=== PATIENT | female | born 1955 ===

== ENCOUNTER 2016-06-10 09:49 | Inpatient (IN) | payer MEDICAID ==
--- NOTE | 2016-06-10 10:13 | ED PDOC ---
Arrival/HPI - General Chief Complaint: Weakness/Neurological Deficit Time Seen by Provider: 06/10/16 10:02 Historian: Patient - History of Present Illness Narrative History of Present Illness (Text): 06/10/16 09:57 Breanna López is a 60 year old female whose past medical history includes Stroke and Hypertension, who presents to the Emergency department after waking up this morning with left eye blindness. Described as complete black vision from left eye, "maybe a few light green lights but all black, no light". Patient was last known well this morning at 2:30AM when she went to bed. Patient states her vision was fine in both eyes all throughout yesterday and last night. Patient previously has seen an Staffing Mgr Dr. Brown who sent her to a Retinal Specialist at [facility] for the left eye, where she was told she had hemorrhages in the back of the left eye. Patient has also been experiencing left sided numbness since yesterday. She does get intermittent left sided numbness she states. Patient otherwise denies any fever, chills, chest pain, shortness of breath, nausea, vomiting, diarrhea, urinary symptoms, back pain, neck pain, headache, eye pain, dizziness, or any other complaints. PMD: Ebonie Camp MD Time/Duration: 24 hours Symptom Onset: Sudden Activities at Onset: Rest, Light Context: Home Past Medical History - Provider Review Nursing Documentation Reviewed: Yes - Infectious Disease Hx of Infectious Diseases: None - Reproductive Menopause: Yes - Cardiac Hx Hypertension: Yes - Endocrine/Metabolic Hx Hypothyroidism: Yes - Hematological/Oncological Hx Blood Transfusions: Yes Hx Blood Transfusion Reaction: No - Musculoskeletal/Rheumatological Hx Falls: No - Psychiatric Hx Anxiety: Yes Hx Depression: Yes Hx Substance Use: No - Surgical History Hx Gastric Bypass Surgery: Yes (20yrs ago) - Anesthesia Hx Anesthesia: Yes Hx Anesthesia Reactions: No Hx Malignant Hyperthermia: No Family/Social History - Physician Review Nursing Documentation Reviewed: Yes Family/Social History: No Known Family HX Smoking Status: Never Smoked Hx Alcohol Use: Yes Hx Substance Use: No Allergies/Home Meds Allergies/Adverse Reactions: Allergies aspirin Allergy (Verified 06/10/16 11:51) RASH codeine Allergy (Verified 06/10/16 11:51) RASH Review of Systems - Physician Review All systems were reviewed & negative as marked: Yes - Review of Systems Constitutional: Normal. absent: Fevers Eyes: Vision Changes (Complete Blindness in Left Eye). absent: Photophobia, Eye Pain ENT: Normal. absent: Hearing Changes Respiratory: Normal. absent: SOB, Cough Cardiovascular: Normal. absent: Chest Pain Gastrointestinal: Normal. absent: Abdominal Pain, Diarrhea, Nausea, Vomiting Genitourinary Female: Normal. absent: Dysuria, Frequency, Hematuria, Urine Output Changes Musculoskeletal: Normal. absent: Back Pain, Neck Pain Skin: Normal Neurological: Other (Left Sided Numbness). absent: Headache, Dizziness Endocrine: Normal Hemo/Lymphatic: Normal Psychiatric: Normal Physical Exam Vital Signs Reviewed: Yes Vital Signs Temp Pulse Resp BP Pulse Ox 06/10/16 11:02 90 18 124/79 99 06/10/16 09:56 95 H 19 137/88 98 06/10/16 09:50 97.5 F L 95 H 19 137/88 98 Blood Pressure: Normal Pulse: Regular Respiratory Rate: Normal Appearance: Positive for: Well-Appearing, Non-Toxic, Comfortable Pain Distress: None Mental Status: Positive for: Alert and Oriented X 3 - Systems Exam Head: Present: Atraumatic, Normocephalic Pupils: Present: PERRL Extroacular Muscles: Present: EOMI Conjunctiva: Present: Normal Mouth: Present: Moist Mucous Membranes Neck: Present: Normal Range of Motion Respiratory/Chest: Present: Clear to Auscultation, Good Air Exchange. No: Respiratory Distress, Accessory Muscle Use Cardiovascular: Present: Regular Rate and Rhythm, Normal S1, S2. No: Murmurs Abdomen: Present: Normal Bowel Sounds. No: Tenderness, Distention, Peritoneal Signs Back: Present: Normal Inspection Upper Extremity: Present: Normal Inspection. No: Cyanosis, Edema Lower Extremity: Present: Normal Inspection. No: Edema Neurological: Present: GCS=15, CN II-XII Intact, Speech Normal, Motor Func Grossly Intact, Normal Cerebellar Funct, Norm Deep Tendon Reflexes, Gait Normal , Memory Normal, Normal 2Pt Descrimination, Other (Left Upper Facial Numbness). No: Normal Sensory Function (left arm numbness) Skin: Present: Warm, Dry, Normal Color. No: Rashes Psychiatric: Present: Alert, Oriented x 3, Normal Insight, Normal Concentration Medical Decision Making ED Course and Treatment: 06/10/16 09:57 Impression: 60 year old female complaining of left eye blindness and left sided numbness/tingling. Differential Diagnosis include but are not limited to: CVA vs. TIA vs. Vitreous Hemorrhage Plan: -- Head CT -- Chest X-ray -- EKG -- Labs, Type and Screen -- Reassess and disposition Case discussed with Dr. Niki Maldonado who recommends MRI without and place on observation for possible CVA. Prior Visits: Notes and results from previous visits were reviewed. Patient was last seen in the Emergency department for abdominal pain on 04/15/16. Progress Notes: 06/10/16 10:15 Procedure: CT HEAD WITHOUT CONTRAST. Dictator: Erich Whalen MD Impression: No acute intracranial hemorrhage. Mild chronic white matter ischemic changes. Note that the possibility of a underlying acute infarct may not be visualized on initial early CT imaging. There may also be a few small nidus of the radiologist chronic lacunar-type infarcts scattered about both basal nuclei. Followup studies could be performed as detailed above. Note these findings were discussed with Dr. willis at approximately 10:15 a.m. with written down and read back verification Mild to moderate generalized volume loss Findings consistent with mild exophthalmos. Clinical correlation and follow-up ophthalmologic examination suggested. 06/10/16 10:24 EKG: Ordered, reviewed, and independently interpreted the EKG. Rate : 91 BPM Rhythm : NSR Interpretation : T-waves inversions in Lead III, AVF Comparison : No change from EKG on 04/14/16 06/10/16 10:41 Vision; Snellen Eye Chart: Left Eye: 0 Right Eye (Without Glasses): 20/50 Right Eye (With Glasses): 20/25 06/10/16 10:44 Tonometer Pressure at 16. 06/10/16 10:52 Procedure: Chest X-Ray Dictator: Erich Whalen MD Impression: No active disease. 06/10/16 10:[address] Boykin as a potential stroke or worsening vitreous hemorrhage. However, at this moment there is nothing urgent to do, until potential stroke is managed. He advised to avoid any anti-coagulants unless needed for stroke treatment. Dr. Boykin will follow up with patient in inpatient or if discharged earlier outpatient. 06/10/16 11:16 Case discussed with FAVIAN Johnson, who will place the patient under her service. Dr. Maldonado came to evaluate patient and recommended Plavix which he ordered. MRI pending and Dr. Maldonado will f/u results. - Lab Interpretations Lab Results: 06/10/16 10:37 06/10/16 10:37 Lab Results 06/10/16 10:43: Blood Type A POSITIVE, Antibody Screen Negative, BBK History Checked No verified bt 06/10/16 10:37: WBC 4.8 D, RBC 4.45, Hgb 12.9, Hct 38.4, MCV 86.3, MCH 29.0, MCHC 33.6, RDW 15.5 H, Plt Count 351, MPV 9.5, Gran % 66.6, Lymph % (Auto) 18.1 L, Bond % (Auto) 12.4 H, Eos % (Auto) 2.7, Baso % (Auto) 0.2, Gran # 3.17, Lymph # 0.9 L, Bond # 0.6, Eos # 0.1, Baso # 0.01, PT 10.8, INR 1.00, APTT 24.3 , Sodium 135, Potassium 4.6, Chloride 101, Carbon Dioxide 25, Anion Gap 14, BUN 7, Creatinine 0.7, Est GFR ( Amer) > 60, Est GFR (Non-Af Amer) > 60, Random Glucose 87, Calcium 9.2, Total Bilirubin 0.5, AST 22, ALT 32, Alkaline Phosphatase 83, Troponin I < 0.01, Total Protein 7.5, Albumin 3.9, Globulin 3.6 , Albumin/Globulin Ratio 1.1, Triglycerides 131, Cholesterol 187, LDL Cholesterol Direct 98, HDL Cholesterol 60 I have reviewed the lab results: Yes - RAD Interpretation Narrative RAD Interpretations (Text): 06/10/16 10:15 Procedure: CT HEAD WITHOUT CONTRAST. Dictator: Erich Whalen MD FINDINGS: HEMORRHAGE: No acute parenchymal, subarachnoid or extra-axial hemorrhage. BRAIN: Mild chronic periventricular white matter ischemic changes again seen extending peripherally into the deep and subcortical white matter both cerebral hemispheres. Note that the possibility of a underlying acute infarct may not be visualized on initial early CT imaging. Follow-up MRI could be performed , the urgency of which should be based on clinical correlation and whether the patient is currently eligible for thrombolytic therapy. There may also be a few small chronic lacunar-type infarcts scattered about both basal nuclei. Minor vascular calcifications present. VENTRICLES: Mild -moderate generalized volume loss. No evidence of obstructive hydrocephalus CALVARIUM: Calvarium is intact. PARANASAL SINUSES: Unremarkable as visualized. No significant inflammatory changes. MASTOID AIR CELLS: Unremarkable as visualized. No inflammatory changes. OTHER FINDINGS: Findings consistent mild exophthalmos. Clinical correlation and follow up ophthalmologic examination suggested Impression: No acute intracranial hemorrhage. Mild chronic white matter ischemic changes. Note that the possibility of a underlying acute infarct may not be visualized on initial early CT imaging. There may also be a few small nidus of the radiologist chronic lacunar-type infarcts scattered about both basal nuclei. Followup studies could be performed as detailed above. Note these findings were discussed with Dr. willis at approximately 10:15 a.m. with written down and read back verification Mild to moderate generalized volume loss Findings consistent with mild exophthalmos. Clinical correlation and follow-up ophthalmologic examination suggested. 06/10/16 10:52 Procedure: Chest X-Ray Dictator: Erich Whalen MD FINDINGS: LUNGS: No active pulmonary disease. PLEURA: No significant pleural effusion identified, no pneumothorax apparent. CARDIOVASCULAR: Normal. OSSEOUS STRUCTURES: No significant abnormalities. VISUALIZED UPPER ABDOMEN: Normal. OTHER FINDINGS: None. Impression: No active disease. Radiology Orders: 06/10/16 10:03 HEAD W/O (CODE STROKE) [CT] Stat 06/10/16 10:05 CHEST PORTABLE [RAD] Stat 06/10/16 11:19 BRAIN WITHOUT CONTRAST [MRI] Stat Branch Service Specialist: Radiologist - EKG Interpretation Interpreted by ED Physician: Yes Type: 12 lead EKG Comparison: Com.w/previous EKG - Medication Orders Current Medication Orders: Gabapentin (Neurontin) 300 mg PO HS HALLE Discontinued Medications Clopidogrel Bisulfate (Plavix) 75 mg PO STAT STA Stop: 06/10/16 12:14 Gabapentin (Neurontin) 300 mg PO HS HALLE PRN Reason: Protocol Pneumococcal Polyvalent Vaccine (Pneumovax 23 Vaccine) 0.5 ml IM .ONCE ONE Stop: 06/10/16 13:15 Last Admin: 06/10/16 14:43 Dose: NIHSS Scale ([place]) Time Performed: 10:02 - How Severe is the Stoke Baseline Level of Consciousness: 0=Alert LOC to Questions: 0=Both comments correct LOC to commands: 0=Obeys both correctly Best Gaze: 0=Normal Visual: 2=Complete hemianopia Facial: 0=Normal Motor Arm - Left: 0=No drift Motor Arm - Right: 3=No effort against gravity (falls immediately) Motor Leg - Left: 0=No drift Motor Leg - Right: 0=No drift Limb Ataxia: 0=Absent Sensory: 1=Mild to moderate loss Best Language: 0=No aphasia Dysarthia: 0=Normal articulation Extinction & Inattention (Neglect): 0=Normal, no object Score: 6 Risk Level: Mod Stroke Risk rTPA Inclusion/Exclusion - Refusal of Treatment Patient Refused Treatment: No - Inclusion Criteria for Altepase Patient is 18 years or Older: Yes The Clinical Diagnosis of Ischemic Stroke That is Causing a Potentially Disabling Neurological Deficit: Yes Time of Onset is Well Established to be Less Than 270 Minute Before Treatment Would Begin: No Risk/Benefit Discussed With Patient/Family Member Present: No - Scribe Statement The provider has reviewed the documentation as recorded by the Camposibjaime Foreman Provider Attestation: All medical record entries made by the Karina were at my direction and personally dictated by me. I have reviewed the chart and agree that the record accurately reflects my personal performance of the history, physical exam, medical decision making, and the department course for this patient. I have also personally directed, reviewed, and agree with the discharge instructions and disposition. Disposition/Present on Arrival - Present on Arrival Any Indicators Present on Arrival: No History of DVT/PE: No History of Uncontrolled Diabetes: No Urinary Catheter: No History of Decub. Ulcer: No History Surgical Site Infection Following: None - Disposition Have Diagnosis and Disposition been Completed?: Yes Diagnosis: Vision loss, Cerebrovascular accident (CVA) Disposition: HOSPITALIZED Disposition Time: 11:20 Patient Plan: Admission Patient Problems: Current Active Problems Problem Status Diagnosed Abdominal pain Acute Condition: FAIR
--- NOTE | 2016-06-10 10:26 | CT ---
PROCEDURE: CT HEAD WITHOUT CONTRAST. HISTORY: left eye blindness; left sided numbness COMPARISON: Comparison made with CT scan brain dated 04/14/2016 TECHNIQUE: Axial computed tomography images were obtained through the head/brain without intravenous contrast. Radiation dose: Total exam DLP = 812.36 mGy-cm. This CT exam was performed using one or more of the following dose reduction techniques: Automated exposure control, adjustment of the mA and/or kV according to patient size, and/or use of iterative reconstruction technique. FINDINGS: HEMORRHAGE: No acute parenchymal, subarachnoid or extra-axial hemorrhage. BRAIN: Mild chronic periventricular white matter ischemic changes again seen extending peripherally into the deep and subcortical white matter both cerebral hemispheres. Note that the possibility of a underlying acute infarct may not be visualized on initial early CT imaging. Follow-up MRI could be performed , the urgency of which should be based on clinical correlation and whether the patient is currently eligible for thrombolytic therapy. There may also be a few small chronic lacunar-type infarcts scattered about both basal nuclei. Minor vascular calcifications present. VENTRICLES: Mild -moderate generalized volume loss. No evidence of obstructive hydrocephalus CALVARIUM: Calvarium is intact. PARANASAL SINUSES: Unremarkable as visualized. No significant inflammatory changes. MASTOID AIR CELLS: Unremarkable as visualized. No inflammatory changes. OTHER FINDINGS: Findings consistent mild exophthalmos. Clinical correlation and follow up ophthalmologic examination suggested IMPRESSION: No acute intracranial hemorrhage. Mild chronic white matter ischemic changes. Note that the possibility of a underlying acute infarct may not be visualized on initial early CT imaging. There may also be a few small nidus of the radiologist chronic lacunar-type infarcts scattered about both basal nuclei. Followup studies could be performed as detailed above. Note these findings were discussed with Dr. willis at approximately 10:15 a.m. with written down and read back verification Mild to moderate generalized volume loss Findings consistent with mild exophthalmos. Clinical correlation and follow-up ophthalmologic examination suggested.
[2016-06-10 10:38] LABS: ADD MANUAL DIFF? NO
[2016-06-10 10:51] LABS: BASO # 0.01 K/mm3 (0.0-2.0); BASO % 0.2 % (0.0-3.0); EOS # 0.1 (0.0-0.7); EOS % 2.7 % (1.5-5.0); GRAN # 3.17 (1.4-6.5); GRAN % 66.6 % (50.0-68.0); HEMATOCRIT 38.4 % (36.0-48.0); LYMPH # 0.9 (1.2-3.4); LYMPH % 18.1 % (22.0-35.0); MEAN CELL VOLUME 86.3 fL (80.0-105.0); MEAN CORPUSCULAR HGB CONC 33.6 g/dl (31.0-37.0); MEAN PLATELET VOLUME 9.5 fl (7.0-11.0); MONO # 0.6 (0.1-0.6); MONO % 12.4 % (1.0-6.0); PLATELET COUNT 351 10^3/uL (120.0-450.0); RED CELL DISTRIBUTION WIDTH 15.5 % (11.5-14.5); WHITE BLOOD COUNT 4.8 10^3/ul (4.5-11.0)
[2016-06-10 10:52] LABS: ALB/GLOB RATIO 1.1 (1.1-1.8); ALKALINE PHOSPHATASE 83 U/L (38-133); ALT/SGPT 32 U/L (7-56); AST/SGOT 22 U/L (15-39); BILIRUBIN,TOTAL 0.5 mg/dL (0.2-1.3); BLOOD UREA NITROGEN 7 mg/dL (7-21); CALCIUM 9.2 mg/dL (8.4-10.5); CARBON DIOXIDE 25 mmol/L (21-33); CHLORIDE 101 mmol/L (98-107); CHOLESTEROL 187 mg/dL (130-200); GFR AFRICAN-AMERICAN > 60; GLUCOSE,RANDOM 87 mg/dL (70-110); POTASSIUM 4.6 mmol/L (3.6-5.0); SODIUM 135 mmol/L (132-148); TOTAL PROTEIN 7.5 g/dL (5.8-8.3)
--- NOTE | 2016-06-10 10:54 | RAD ---
HISTORY: cva COMPARISON: No prior. FINDINGS: LUNGS: No active pulmonary disease. PLEURA: No significant pleural effusion identified, no pneumothorax apparent. CARDIOVASCULAR: Normal. OSSEOUS STRUCTURES: No significant abnormalities. VISUALIZED UPPER ABDOMEN: Normal. OTHER FINDINGS: None. IMPRESSION: No active disease.
[2016-06-10 10:57] LABS: PARTIAL THROMBOPLASTIN TIME 24.3 Seconds (23.7-30.8)
[2016-06-10 11:04] LABS: TROPONIN I < 0.01 ng/mL
--- NOTE | 2016-06-10 13:05 | CON ---
DATE: 06/10/2016 CHIEF COMPLAINT: Transient left arm and leg numbness, intermittent, as well as loss of vision in the left eye. HISTORY OF PRESENT ILLNESS: This is a 60-year-old woman with past medical history of hypertension wh o has a history of partial vitreous hemorrhage in the left eye, which was seen by a retinal specialis t at [place] by who has been monitoring her. She was told she had some mild vitreous he morrhages in the back of the left eye which is partial, but [facility], who had a recent loss of her in the past few months and is undergoing a grief period. She has a history also gastric bypass surgery and also complains of intermittent numbness an d tingling sensation in the left hand and bilateral feet. She has very poor p.o. appetite since the loss of her . She mentioned that she woke up this morning, could not see out of the left eye except for some initial colored dots. Currently, she mentioned that she cannot see completely out of the left eye at all now and had a mild left-sided temporal headache with some left side numbness. C urrently, her neuro exam is nonfocal except for complete loss of vision of the left eye. CT head wallace wed no acute intracranial abnormalities, just chronic lacunar scattered type infarcts. She is ALLERG IC TO ASPIRIN. Currently, she will be going for an MRI. Her neuro exam is nonfocal. There is no pr onator drift seen. Her paresthesias have somewhat calmed down. She does have a history of anxiety a nd depression from the recent loss of her . She stopped taking her Klonopin herself over 2 we eks ago. REVIEW OF SYSTEMS: A 14-point review of systems is negative except for the HPI. 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 SOCIAL HISTORY: No illicit drug use, smoking, or ETOH abuse. ALLERGIES: ALLERGIC TO ASPIRIN, CODEINE, AND CONTRAST. FAMILY HISTORY: Noncontributory. SURGICAL HISTORY: History of gastric bypass 20 years ago. MEDICATIONS: Reviewed via nurse's reconciliation sheet. SOCIAL HISTORY: No illicit drug use, smoking, or ETOH abuse. Recently lost her about a few months ago. PHYSICAL EXAMINATION: VITAL SIGNS: Temperature 97.5, pulse rate of 90, blood pressure 124/79, respiratory rate of 18, oxyg en saturation 99% on room air. GENERAL: The patient is sitting up in bed in no acute distress. HEENT: Atraumatic, normocephalic. PERRLA. Extraocular muscles intact. Has loss of vision in the le ft eye, cannot see completely out of the left eye. NECK: Supple, no JVD, no adenopathy noted. LUNGS: Clear to auscultation. No adventitious sounds. HEART: S1, S2, normal rate and rhythm. No murmurs, rubs, or gallops. ABDOMEN: Soft, nontender, nondistended. Bowel sounds are present. EXTREMITIES: No clubbing, no cyanosis. Peripheral pulses 2+ felt bilaterally. NEUROLOGIC: The patient is alert, oriented to person, place, month and year. Has a flat affect. Sl ightly anxious. Recall after 5 minutes is 2/3. Poor attention span, slow thought process. Cranial nerves II through XII are intact except for loss of vision completely of the left eye. No facial yasir op seen. MOTOR: Normal tone, normal bulk of muscle. Moves all extremities equally. Strength is 5/5 in both upper and lower extremities. No pronator drift seen. Toes are downgoing bilaterally. SENSORY: Light touch, pinprick, proprioception, vibration intact. DTRs are 2+ throughout, 1 at the ankles. COORDINATION: [id number] intact. GAIT: Deferred for now. LABORATORIES: Sodium is 135, potassium 4.6, chloride 101, carbon dioxide 25, BUN of 7, creatinine 0. 7. Random glucose 87. ASSESSMENT: This is a 60-year-old woman with past medical history of hypertension, dyslipidemia, hyp othyroidism, history of partial left vitreous hemorrhage, which was seen by an aluminum sheet cutter at [facility] named who is managing the patient with conservative management by monitoring her le ft eye vision, who has recent loss of her a few months ago and has been anxious and depressed and is off of any depressants and anxiolytics by herself. She sees a psychiatrist. Came in with mi ld left-sided temporal headache, which is followed by loss of vision of the left eye and paresthesias in the left arm and leg. She has been having intermittent paresthesias in bilateral feet and the le ft hand. For the past few months, she has poor p.o. appetite. Her blood pressure is currently stabl e, was not hypertensive. She is ALLERGIC TO ASPIRIN. At this time, I feel like her constellation an d presentation of symptoms of her left eye blindness seems secondary to either a vitreous hemorrhage versus an occipital infarct. Carotid artery disease is suspected, but there is no carotid bruit hear d on auscultation. At this time, there is also an underlying anxiety and depression component to thi s. PLAN: 1. We will give Plavix 75 mg p.o. daily and Lipitor 40 mg p.o. daily for stroke prevention and dysli pidemia. 2. We will recommend gabapentin 300 mg p.o. at bedtime, which will be an anxiolytic and help with he r paresthesias. 3. Get a B12 level, copper level, folic acid and vitamin D level and will likely need replacement. 4. Instructed on frequent meals throughout the day. 5. An ophthalmological consult to assess for her left eye blindness. 6. An MRI of the brain to assess for acute infarct. 7. Continue with current present medical management. Thank you for this consult. Asher Maldonado MD cc: [id number] TT: 06/10/2016 13:04:04 Confirmation # [id number] Dictation # [id number] mirza
[2016-06-10 13:14] VITALS: BMI 31.1
[2016-06-10] MEDS ORDERED: Pneumococcal 23-Valent Vaccine IM ONE (13:14)
--- NOTE | 2016-06-10 17:57 | CON ---
DATE: 06/10/2016 HISTORY OF PRESENT ILLNESS: The patient is a 60-year-old female with past medical history of hypothyroid, and hypertension. The patient reported a history of some vision issues about 3 weeks ago for which she was seen by an welt wheeler and was told that she may have some bleeding or some problem in the back of her left eye. At that time, she did not report any visual symptoms. She reports that starting this morning she woke with no vision her left eye. She can barely see light. She has no pain or headache. PAST MEDICAL HISTORY: As above. PAST OCULAR HISTORY: The patient has no history of ocular surgery or treatment. The patient reported that she is only on medication for thyroid disease. EXAMINATION: The patient's vision in the right eye without correction for near is 20/60. The patient's vision for the left eye is light perception. On slit lamp exam the patient has clear corneas in both eyes. Positive afferent pupillary defect in the left eye. She does have mild nuclear sclerotic changes in her lenses. On posterior retinal exam her right nerve is 0.2 cups to disk ratio with no swelling. Her left nerve is edematous and swollen. There are no peripheral or macular retinal hemorrhages in her left eye. ASSESSMENT: Optic nerve edema left eye/optic neuritis left eye. The patient at this point is scheduled to have an MRI. She has had a CT scan, which was negative. I will discuss this with Dr. Camp as to which way to proceed with the patient. I discussed the findings with the patient and gave her information for followup next week in the office, but the patient is still pending MRI and further testing here. Once they are complete, I will discuss the case further with Dr. Camp. 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 John Boykin MD cc: [id number] TT: 06/10/2016 17:56:51 Confirmation # [id number] Dictation # [id number] MTDD
[2016-06-10] MEDS ORDERED: Fluticasone-Salmeterol 500-50mcg Diskus INH SCH (18:00)
--- NOTE | 2016-06-10 18:01 | MRI ---
PROCEDURE: MRI of the brain HISTORY: L eye complete blindness L side numbness r/o CVA COMPARISON: None. TECHNIQUE: Multiplanar, multisequence MR images of the brain were obtained without intravenous contrast enhancement. In addition, high-resolution axial and coronal T2 weighted sequences through the orbits obtained. FINDINGS: HEMORRHAGE: No acute parenchymal, subarachnoid nor extra-axial hemorrhage. No evidence of hemosiderin deposition identified on GRE weighted sequences. DWI: No evidence of an acute or early subacute infarction seen on diffusion-weighted sequence. Dated. BRAIN PARENCHYMA: Minor chronic periventricular white matter ischemic changes with multiple small chronic appearing lacunar type infarcts scattered about deep and subcortical white matter both cerebral hemispheres. In addition, there may also be a few tiny chronic brainstem lacunar type infarcts as well. Mild moderate generalized volume loss evidenced by prominent ventricles and sulci. Note made of partially empty sella. VENTRICLES: No evidence of hydrocephalus. . CRANIUM: Unremarkable. ORBITS: Note made of a linear area of increased T2 signal within the left optic nerve seen on the standard axial T2 sequences (series 6 axial image number 9) however this same signal is not identified on the high-resolution T2 weighted sequences and therefore probably represents volume averaging artifact of CSF surrounding the optic nerve within the optic nerve sheath. Clinical correlation recommended. . Fundoscopic examination recommended to assess for retinal artery occlusion PARANASAL SINUSES/MASTOIDS: Visualized paranasal and mastoid air complexes are well-developed. Minimal mucosal thickening noted within the ethmoid air complex. VASCULAR SYSTEM: Visualized major vascular flow voids at skull base are patent. OTHER FINDINGS: None. IMPRESSION: No acute intracranial hemorrhage or acute infarct . Mild periventricular white matter ischemic changes with multiple on more discrete small chronic appearing lacunar type infarcts scattered about the deep and subcortical white matter. Mild to moderate generalized volume loss. Note made of a linear area of increased T2 signal within the left optic nerve seen on the standard axial T2 sequences (series 6 axial image number 9) however this same signal is not identified on the high-resolution T2 weighted sequences and therefore probably represents volume averaging artifact of CSF surrounding the optic nerve within the optic nerve sheath. Clinical correlation recommended. . Fundoscopic examination recommended to assess for retinal artery occlusion Questionable mild mild exophthalmos
[2016-06-10] MEDS: Levothyroxine 112 MCG TAB PO SCH (18:17)
--- NOTE | 2016-06-10 19:09 | HP ---
CHIEF COMPLAINT: "I cannot see from my eye." HISTORY OF PRESENT ILLNESS: The patient is a 60-year-old female with past medical history of stroke, hypertension, depression, came to the Emergency Room because when she woke up in the morning, she cannot see from the left eye, described as complete black vision from the left eye. Maybe a few light green lights, but all black, cannot see. The patient was last known well this morning at 2:30 a.m. when she went to the bed. The patient states her vision was fine in both eyes before sleep, all through yesterday and last night. The patient previously has been worked up by the jersey knitter, Dr. Brown, who sent her to the retinal specialist at [facility] for the left eye where she was told that she had small hemorrhage in the back of the left eye that was so small , it does not need anything as per pt . Needs followup after 3 months and the patient was felt that she paid $800 and all things were taken care. The patient has been also experiencing left-sided numbness since yesterday. The patient does get intermittent left-sided numbness, she states. The patient otherwise denies any fever, chills, chest pain, shortness of breath, nausea, vomiting, or diarrhea. No hematuria or hematochezia. PAST MEDICAL HISTORY: Insomnia, depression, hypertension, hypothyroidism, history of anemia, blood transfusion, anxiety, depression, history of gastric bypass surgery 20 years ago. FAMILY HISTORY: Father and mother noncontributory. HABITS: Never smoked, no drugs, no ethanol. ALLERGIES: THE PATIENT IS ALLERGIC WITH ASPIRIN AND CODEINE. REVIEW OF SYSTEMS: The patient is seen and examined on the bedside. Daughter and son-in-law were on the bedside and we got prior history and she told me all history as dictated above. At this moment, she said she cannot see from the left eye, but from the right eye she can see. Otherwise, she had numbness of the upper 2 extremities also. No photophobia, no eye pain. No hearing problem. No shortness of breath. No coughing. No chest pain. No abdominal pain, diarrhea, nausea or vomiting. No dysuria, frequency, hematuria. No back pain, neck pain. Having left-sided weakness. No dizziness, no headache. PHYSICAL EXAMINATION: VITAL SIGNS: Temperature 97.5, pulse 95, respiratory rate 19, and blood pressure 137/88, and pulse oximetry 98. HEENT: Head normocephalic, atraumatic. Right eye PERRLA, extraocular muscles intact. Conjunctivae pink. Left eye, APD as per Dr. Boykin. Extraocular muscles intact. Nose patent. NECK: Supple. No carotid bruit, JVD or thyromegaly. CHEST: Bilaterally symmetrical. HEART: S1, S2 positive. LUNGS: Clear to auscultation. ABDOMEN: Soft. Bowel sounds present. No organomegaly. EXTREMITIES: No edema, no cyanosis. NEUROLOGIC: The patient is awake, alert, moving all 4 extremities. No focal deficits. LABORATORY DATA: White blood count 4.8, hemoglobin 12.9, hematocrit 38.4, platelets 351. Sodium 135, potassium 4.6, BUN 7, creatinine 0.7, and glucose 87. 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 Recently saw jersey knitter in [place], and retinal specialist. Was informed she has a small retinal hemorrhage, history of mild temporal headache, which followed her loss of vision of the left eye, and paraesthesia in the left arm and leg. She has been having intermittent paraesthesias in the bilateral feet and left hand. She has poor p.o. appetite. Her blood pressure is currently stable. Her blindness seems to be secondary to the vitreous hemorrhage versus occipital infarction. Coronary artery disease is suspected, but there is no carotid bruit heard on the auscultation. The patient has anxiety and depression also and noncompliant with blood pressure medication. According to neurologist, we can give Plavix, Lipitor, gabapentin, vitamin B12 level, thiamine, vitamin D. Ophthalmology consult. MRA of the brain. Length of time discussion done with Dr. Boykin. His phone number is [phone]. Appreciated his input. He personally called me and he saw my patient on , really appreciated. According to him, that left eye nerve is under pressure. Maybe patient has complete blindness. We had length of time discussion done about her medical problems and other suitable causes. He promised he will do dictation and then we will review that. Meanwhile, continue present treatment. We have to rule out giant cell arteritis also. Will discuss with neurologist. Ebonie Camp MD cc: [id number] TT: 06/10/2016 19:08:56 mirza BROUSSARD
--- NOTE | 2016-06-10 19:45 | US ---
PROCEDURE: Bilateral carotid artery duplex ultrasound HISTORY: Carotid stenosis PHYSICIAN(S): Mario Mendoza MD. TECHNIQUE: Duplex sonography and color-flow Doppler were used to evaluate the carotid bifurcations and limited segments of the vertebral arteries bilaterally. FINDINGS: There is mild smooth heterogeneous plaque noted at the carotid bifurcations bilaterally. The peak systolic velocity in the proximal right internal carotid artery is 66 cm/sec. This corresponds to a 20 to 39% proximal right ICA stenosis. Normal systolic velocities are noted in the proximal right external carotid artery. There is antegrade flow in the right vertebral artery. The peak systolic velocity in the proximal left internal carotid artery is 79 cm/sec. This corresponds to a 20 to 39% proximal left ICA stenosis. Normal systolic velocities are noted in the proximal left external carotid artery. There is antegrade flow in the left vertebral artery. IMPRESSION: 1. Bilateral 20-39% proximal ICA stenoses. 2. Antegrade flow in both vertebral arteries.
[2016-06-10] MEDS: Arformoterol 15 mcg/2 ml Inh Sol IH SCH (20:05)
[2016-06-10] MEDS: Budesonide 0.5 mg/2 ml Inhal Susp UD IH SCH (20:05)
[2016-06-11] MEDS: Levothyroxine 112 MCG TAB PO SCH (06:35)
[2016-06-11] MEDS: Arformoterol 15 mcg/2 ml Inh Sol IH SCH ×2 (07:47→19:56)
[2016-06-11] MEDS: Budesonide 0.5 mg/2 ml Inhal Susp UD IH SCH ×2 (07:48→19:56)
--- NOTE | 2016-06-11 09:35 | CARD ---
APPROVED REPORT EKG Measurement Heart [id number] <Conclusion> Normal sinus rhythm Low voltage QRS V 3 - 6 Inferior infarct, age undetermined PRWP Mildly prolonged QTc No change
[2016-06-11] MEDS: Venlafaxine 75 mg ER Cap PO SCH (09:38)
[2016-06-11] MEDS: Fluticasone Nasal 50 mcg/Spray NS SCH (09:38)
[2016-06-11] MEDS: methylPREDNISolone 1 GM in Sodium Chloride 0.9% 250 ML IVPB SCH (14:44)
[2016-06-11 17:03] LABS: FOLATE 9.9 ng/mL
[2016-06-11] MEDS: Tmp-Smz 800 mg-160 mg DS Tab PO SCH (17:26)
[2016-06-11 18:24] LABS: URINE BILIRUBIN NEGATIVE (NEGATIVE); URINE BLOOD NEGATIVE (NEGATIVE); URINE GLUCOSE (UA) NEGATIVE (NEGATIVE); URINE KETONE TRACE mg/dL (NEGATIVE); URINE LEUKOCYTE ESTERASE SMALL Leu/uL (NEGATIVE); URINE PROTEIN NEGATIVE mg/dL (<30 mg/dL); URINE UROBILINOGEN 0.2 E.U./dL (<1 E.U./dL)
[2016-06-11 18:29] LABS: URINE APPEARANCE SL CLOUDY (CLEAR); URINE COLOR YELLOW (YELLOW)
[2016-06-11 18:30] LABS: URINE CALCIUM OXALATE CRYSTALS MOD /hpf; URINE RBC 0 - 2 /hpf (0-2); URINE WBC 25 - 30 /hpf (0-6)
[2016-06-11 18:31] LABS: URINE BACTERIA FEW (NEG)
--- NOTE | 2016-06-12 03:46 | CP.PCM.PN ---
Subjective - Date & Time of Evaluation Date of Evaluation: 06/12/16 Time of Evaluation: 03:43 - Subjective Subjective: S:Ambien 5 mg po was ordered. has an order for 10 mg Ambien po. Pharmacy would release only 5 mg Ambien for patient . Patient stated that she needs 10 mg Ambien. Ambien 5 mg is not helping her. O: Last Vital Signs 3 Temp 97.5 F L 06/10/16 12:41 Pulse 82 06/11/16 18:00 Resp 18 06/10/16 12:41 BP 124/79 06/10/16 12:41 Pulse Ox 99 06/10/16 11:02 Not in distress. LUNGS:Normal breathing pattern. A:Adjustment insomnia. P:Give extra 5 mg Ambien PO x 1. Objective - Vital Signs/Intake and Output Vital Signs (last 24 hours): Temp Pulse Resp BP Pulse Ox 97.5 F L 82 18 124/79 99 06/10/16 12:41 06/11/16 18:00 06/10/16 12:41 06/10/16 12:41 06/10/16 11:02 Intake and Output: 06/11/16 06/12/16 18:59 06:59 Intake Total 360 Output Total 1 Balance 359 - Medications Medications: Current Medications Acetaminophen (Tylenol 325mg Tab) 650 mg PO Q6H PRN PRN Reason: Fever >100.4 F Arformoterol Tartrate (Brovana) 15 mcg IH [id number] [facility] Last Admin: 06/11/16 19:56 Dose: 15 mcg Budesonide (Pulmicort Respules) 1 mg IH [id number] [facility] Last Admin: 06/11/16 19:56 Dose: 1 mg Clonazepam (Klonopin) 0.5 mg PO BID [facility] PRN Reason: Protocol Last Admin: 06/11/16 17:07 Dose: Not Given Clopidogrel Bisulfate (Plavix) 75 mg PO DAILY [facility] Last Admin: 06/11/16 11:45 Dose: 75 mg Famotidine (Pepcid) 40 mg PO [facility] Last Admin: 06/11/16 21:17 Dose: 40 mg Fluticasone Propionate (Flonase) 1 actuation NS DAILY [facility] Last Admin: 06/11/16 09:38 Dose: Not Given Gabapentin (Neurontin) 300 mg PO [facility] Last Admin: 06/11/16 21:17 Dose: 300 mg Methylprednisolone 1 gm/ (Sodium Chloride) 250 mls @ 500 mls/hr IVPB DAILY [facility] Stop: 06/13/16 10:29 Last Admin: 06/11/16 14:44 Dose: 500 mls/hr Levothyroxine Sodium (Synthroid) 112 mcg PO ACB [facility] Last Admin: 06/11/16 06:35 Dose: 112 mcg Loratadine (Claritin) 10 mg PO DAILY [facility] Last Admin: 06/11/16 09:38 Dose: Not Given Mirtazapine (Remeron) 45 mg PO HS [facility] Last Admin: 06/11/16 21:18 Dose: 45 mg Montelukast Sodium (Singulair) 10 mg PO HS [facility] Last Admin: 06/11/16 21:19 Dose: 10 mg Trimethoprim/Sulfamethoxazole (Bactrim Ds Tab) 1 tab PO BID [facility] PRN Reason: Protocol Last Admin: 06/11/16 17:26 Dose: 1 tab Venlafaxine HCl (Effexor Xr) 150 mg PO DAILY [facility] Last Admin: 06/11/16 09:38 Dose: Not Given Zolpidem Tartrate (Ambien) 5 mg PO HS PRN; Protocol PRN Reason: Insomnia Last Admin: 06/11/16 21:16 Dose: 5 mg - Labs Labs: PT 10.8 Seconds (9.9-11.8) 06/10/16 10:37 INR 1.00 (0.93-1.08) 06/10/16 10:37 APTT 24.3 Seconds (23.7-30.8) 06/10/16 10:37
[2016-06-12] MEDS: Arformoterol 15 mcg/2 ml Inh Sol IH SCH ×2 (07:45→19:55)
[2016-06-12] MEDS: Budesonide 0.5 mg/2 ml Inhal Susp UD IH SCH ×2 (07:45→19:55)
[2016-06-12] MEDS: Levothyroxine 112 MCG TAB PO SCH (07:46)
--- NOTE | 2016-06-12 07:48 | PN ---
DATE: 06/11/2016 SUBJECTIVE: The patient was seen and examined on the bedside in the morning. Still cannot see from t he left eye. Right eye vision is okay. Having throbbing feeling in the left temporal area. No nausea, vomiting or diarrhea. No hematuria or hematochezia. No fever, no chills. PHYSICAL EXAMINATION: VITAL SIGNS: Temperature 98.6, pulse 101, blood pressure 124/79. HEENT: Head is normocephalic, atraumatic. Right eye: PERRLA, extraocular muscles intact, conjunctiv ae pink, eyelids unremarkable. Left eye: Extraocular muscles intact. Conjunctivae are clear. Nose p atent. Mucous membranes moist. NECK: Supple. Soft carotid bruit. No JVD or thyromegaly. CHEST: Bilaterally symmetrical. HEART: S1, S2 positive. LUNGS: Clear to auscultation. ABDOMEN: Soft. Bowel sounds positive. No organomegaly. EXTREMITIES: No edema, no cyanosis. NEUROLOGIC: The patient is awake and alert. Moving all 4 extremities. No focal deficit. MEDICATIONS: Ambien, Bactrim, Brovana, Claritin, Effexor, Flonase, Klonopin, Neurontin, Pepcid, Plav ix, Pulmicort, Remeron, Singulair, Synthroid, Tylenol. LABORATORY DATA: White blood cells 4.8, hemoglobin 12.9, hematocrit 38.4, platelets 351. ASSESSMENT AND PLAN: The patient is a 60-year-old lady with history of hypothyroidism. According to patient, she started history of some vision issues about 3 weeks ago for which she was seen by an oph thalmologist and was told that she has some bleeding or some problem in the back of the left eye. At that time, she did not report any visual changes. History of gastric bypass. According to ophthalmolo gist, Dr. John Boykin, the patient has optic nerve edema of left eye/optical neuritis of left eye. The patient at this point is scheduled to have an MRI. She has had a CT scan and it was negative. Discus james done with Dr. Boykin, and Dr. Boykin suggested to the patient to see outpatient next week to Dr. Boykin. The patient went for MRI of the brain. According to that, no acute intracranial hemorrhage or acute i nfarction, mild perivascular white matter ischemic changes with multiple on more discrete small chron ic appearance lacrimal type of infarction scattered about the deep and subcortical white matter, mild to moderate generalized volume loss. Left optic nerve was seen on the standard T2 axial. Probably re presenting volume averaging artifact of CSF found in the optic nerve within the optic nerve sheath. T he ER recommended funduscopic examination to assess the retinal artery occlusion. Questionable mild e xophthalmos, but eye examination is done by Dr. John Boykin. Length of time discussion done with Dr. Laurent Maldonado by me. Plan is that we will do rheumatic workup. Still we are not sure about the rheumat ic problem but still, according to Dr. Asher Maldonado and by me, we should give the patient a try of s teroids. The situation is explained to the patient; she agrees. She said that, "Even it will work ilene y little or will not work, at least give me a try of steroids." The side effects of the steroid was e xplained to the patient; she understands. She is a very smart lady and she wants to get a try of ster oid. Meanwhile, will continue present treatment. GI and DVT prophylaxis. Repeat labs. Will follow up . Ebonie aCmp MD cc: [id number] TT: 06/12/2016 07:47:33 Confirmation # [id number] Dictation # [id number] freddie
--- NOTE | 2016-06-12 08:25 | PN ---
DATE: 06/11/2016 CHIEF COMPLAINT: Followup for left eye visual loss and intermittent paresthesias in the hands and fe et. SUBJECTIVE: The patient seen and examined at bedside. She still cannot see out of the left eye. Op hthalmology has seen the patient and I appreciate them coming to see the patient. They examined her and felt it is a left optic nerve edema with some left optic neuritis, non-MS related, which I agree. She has a positive afferent pupillary defect also in her left eye. Her MRI of the brain showed no acute intracranial abnormality, just swelling of the left optic nerve. She has scattered old lacunar infarcts, which she is not on aspirin since she is allergic, so therefore I have placed her on Plavi x. Currently, she feels mildly lightheaded. Carotid Doppler showed 20%-39% proximal ICA stenosis an d antegrade flow in the vertebral arteries. She is less anxious. She is more anxious about not bein g able to see the day and she has underlying depression. REVIEW OF SYSTEMS: A 14-point is negative except for above in the HPI. FAMILY HISTORY: Noncontributory. PAST MEDICAL HISTORY: History of TIAs, hypertension, history of partial left eye blindness secondary to questionable vitreous hemorrhage in the past which she was told, history of hypothyroidism, anxie ty, depression, recent loss of her . SOCIAL HISTORY: No illicit drug use, smoking, or ETOH abuse. Recent loss of her few months ago. ALLERGIES: ALLERGIC TO ASPIRIN, CODEINE, CONTRAST. FAMILY HISTORY: Noncontributory. PAST SURGICAL HISTORY: History of gastric bypass 20 years ago. MEDICATIONS: Reviewed via nurse's reconciliation sheet. PHYSICAL EXAMINATION: VITAL SIGNS: Temperature 97.5, pulse rate 90, blood pressure 124/79, respiratory rate of 18, oxygen 99% via room air. GENERAL: The patient is sitting up in bed, in no acute distress. HEENT: Atraumatic, normocephalic. PERRLA. Extraocular muscles intact. Has complete loss of vision in the left eye. NECK: Supple, no JVD, no adenopathy noted. LUNGS: Clear to auscultation. No adventitious sounds. HEART: S1, S2, normal rate and rhythm. No murmurs, rubs, or gallops. ABDOMEN: Soft, nontender, nondistended. Bowel sounds are present. EXTREMITIES: No clubbing, no cyanosis. Peripheral pulses 2+ felt bilaterally. NEUROLOGIC: The patient is alert, oriented to person, place, month and year, has a flat affect, slig htly anxious. Recall after 5 minutes is 2/3. Poor attention span, slowed through process. Cranial nerves II-XII are intact except for complete visual loss of the left eye. No facial droop seen. MOTOR: Normal tone, normal bulk of muscle. Moves all extremities equally. Strength is 5/5 in both upper and lower extremities. No pronator drift. Toes are downgoing bilaterally. SENSORY: Light touch, pinprick, proprioception, vibration intact. DEEP TENDON REFLEXES: 2+ throughout and 1 at the ankles. COORDINATION: Joahsf-od-rdda intact. GAIT: Deferred for now. LABORATORIES: Today's blood glucose is 97. MRI of the brain showed chronic lacunar scattered infarc ts with swelling of the left optic nerve, otherwise no acute infarction. ASSESSMENT AND PLAN: A 60-year-old woman with past medical history of hypertension, dyslipidemia, hy pothyroidism, history of partial left visual blurriness from questionable vitreous hemorrhage in the past which was seen by the shank maker at [place] [facility] who is managing with conservative management of her left eye vision, who had recent loss of her a few months ago, has been anxious, depre ssed and is off antidepressant and anxiolytics by herself. She sees a psychiatrist. Came in for lef t-sided temporal headache with loss of vision of the left eye, intermittent paresthesias of the left arm and leg. She has been having intermittent paresthesias of bilateral feet and left hand also for the past few months. She does poor p.o. appetite and is depressed. 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 It is minimal chances of her getting complete visual sight ba ck on the left eye due to its nonarteritic component and left optic nerve swelling. Doubt any role o f steroids will help at this time. She does have also a carotid Doppler showed 20%-39% proximal inte rnal carotid artery stenosis with antegrade flow in the vertebral artery. An MRI of the brain did no t show any acute infarct, just swelling of the left optic nerve. Her intermittent paresthesia is als o a combination of her underlying anxiety with superimposed possible underlying neuropathy from histo ry of gastric bypass. At this time: 1. Plan to keep her on Plavix 75 mg p.o. daily and Lipitor 40 mg daily for stroke prevention and dys lipidemia. 2. Continue with gabapentin 300 mg p.o. at bedtime for anxiolytic and paresthesias. 3. B12 level, copper level, folic acid, vitamin D level. 4. Follow up with ophthalmology's management. At this time, continue with current present medical management. Thank you for this followup. Asher Maldonado MD cc: [id number] TT: 06/11/2016 11:26:21 Confirmation # [id number] Dictation # [id number] en
[2016-06-12] MEDS: Venlafaxine 75 mg ER Cap PO SCH (09:29)
[2016-06-12] MEDS: Tmp-Smz 800 mg-160 mg DS Tab PO SCH ×2 (09:29→17:57)
[2016-06-12] MEDS: methylPREDNISolone 1 GM in Sodium Chloride 0.9% 250 ML IVPB SCH (09:37)
[2016-06-12] MEDS: Fluticasone Nasal 50 mcg/Spray NS SCH (12:40)
[2016-06-12] MEDS ORDERED: DiphenhydrAMINE 50 mg/ml Inj IVP STA (16:14)
[2016-06-12] MEDS ORDERED: Gadodiamide 287 MG/ML VIAL (15ML) IV ONE (16:17)
[2016-06-12] MEDS ORDERED: DiphenhydrAMINE 50 mg/ml Inj ONE (16:18)
--- NOTE | 2016-06-12 18:34 | PN ---
DATE: 06/12/2016 CHIEF COMPLAINT: Left eye visual loss. SUBJECTIVE: The patient seen and examined at bedside. I have started her on 1 gram of Solu-Medrol. She has received a total of 2 doses so far and will get a third dose tomorrow. She is going to unde rgo an MRI of the cervical spine with contrast to assess for any demyelinating disease. Her carotid Doppler showed 20% to 39% proximal ICA stenosis. An MRI did not show any acute intracranial abnormali ty except for left optic nerve swelling. 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 She is on gabapentin 300 mg p.o. at bedtime for neuropathic relief as well as anxiety. I put her on Plavix for stroke prevention. She is on Remeron 45 mg p.o. at bedtime for depression as well as it helps her to sleep. Her ESR has been 10, which is normal and her B12 level is 44 and folate is 9. 9 which is normal. Her vitamin D level was less than 12.8, which is low. A1c is 5.5. Currently, he r rheumatoid factor is 7 which is normal, which is less than 14. Her SSB and SSA antibody is current ly pending as well as an SURESH screen. She still has no visual field at all in her left eye. REVIEW OF SYSTEMS: A 14-point review of systems is negative except in the HPI. 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 SOCIAL HISTORY: No illicit drug use, smoking, or EtOH abuse. ALLERGIES: ASPIRIN, CODEINE, CONTRAST. FAMILY HISTORY: Noncontributory. MEDICATIONS: Reviewed via nurse's reconciliation sheet. PHYSICAL EXAMINATION: VITAL SIGNS: Temperature 97.9, pulse rate of 75, blood pressure of 146/80, respiratory rate of 18, o xygen saturation is 94% on room air. GENERAL: The patient is sitting up in bed in no acute distress. HEENT: Atraumatic, normocephalic. PERRLA. Extraocular muscles intact. There is complete loss of v ision in the left eye. NECK: Supple, no JVD, no adenopathy noted. LUNGS: Clear to auscultation. No adventitious sounds. HEART: S1, S2, normal rate and rhythm. No murmurs, rubs, or gallops. ABDOMEN: Soft, nontender, nondistended. Bowel sounds present. EXTREMITIES: No clubbing, no cyanosis. Peripheral pulses 2+ felt bilaterally. NEUROLOGIC: The patient is alert, oriented to person, place, month and year, has flat affect, slight ly anxious. Recall at 5 minutes 2/3. Poor attention span, slow thought process. Cranial nerves II- XII intact, except for complete visual loss in the left eye. No facial droop seen. Motor: Normal t one, normal bulk of muscle. Moves all extremities equally. Strength is 5/5 in both upper and lower extremities. Toes downgoing bilaterally. Deep tendon reflexes 2+ throughout and 1 at the ankles. C oordination: [id number] intact. Gait is deferred for now. LABORATORY DATA: ESR is 10. B12 is 444, folate is 9.9 which are all normal. Vitamin D level is les s than 12.8 and rheumatoid factor is 7 which is normal. ASSESSMENT AND PLAN: This is a 60-year-old woman with past medical history of hypertension, dyslipid emia, hypothyroidism, history of partial left visual blurriness with questionable vitreous hemorrhage in the past, was seen by an outbound sales consultant at [place] who is managing with conservative manageme nt of the left eye visual loss, who recently had loss of her a few months ago and had been an xious, depressed and is off of antidepressants and anxiolytics and was seeing a psychiatrist, came he re for left temporal headache with loss of vision of the left eye, intermittent paresthesias of the l eft arm and leg. Her ESR was normal. She has intermittent paresthesias of the bilateral hands and f eet over this past month. She has poor p.o. and her appetite is depressed. The outbound sales consultant had evaluated the patient and showed that she had left optic nerve edema and a diagnosis nonarteritic isc hemic neuropathy of the left optic nerve, which I agree with and mentioned the limited amount of gett ing her visual sight back in her left eye, but I have started her on a total of 3 doses of IV Solu-Me drol of 1 gram. She has received 2 doses so far and will be having the third tomorrow. I will order also an MRI of the cervical spine to assess for any demyelinating disease that could correspond to h er left eye visual loss. At this time, recommend: 1. Continue with gabapentin 300 mg p.o. daily for anxiolytic and paresthesias. 2. Continue with Plavix 75 mg and Lipitor 40 mg p.o. daily for stroke prevention, dyslipidemia and r eplace her with her vitamin D level of at least 5000 International Units p.o. daily and to follow up as an outpatient. Her rheumatic profile so far for rheumatoid factor is normal as well as a B12 and folate and ESR. Continue with current present medical management. Thank you for this followup. Asher Maldonado MD cc: [id number] TT: 06/12/2016 18:33:51 Confirmation # [id number] Dictation # [id number] mn
--- NOTE | 2016-06-12 18:50 | MRI ---
PROCEDURE: MR CERVICAL SPINE WITH AND WITHOUT CONTRAST HISTORY: LEFY EYE BLINDNESS,EVALUATE FOR DEMYELINATION COMPARISON: None available. TECHNIQUE: Multiecho multiplanar sequences were performed through the cervical spine with and without the use of intravenous contrast. FINDINGS: Normal lordotic curvature. Craniocervical junction unremarkable. Vertebral body heights preserved. No marrow signal abnormality. Normal cervical cord. No paraspinal abnormality. No abnormal enhancement C2-3: No disc herniation, spinal canal stenosis or neural foraminal narrowing. C3-4: No disc herniation, spinal canal stenosis or neural foraminal narrowing. C4-5: Small osteophyte disc bulging complex associated with mild spinal narrowing. C5-C6: Small to moderate size osteophyte disc bulging complex associated with mild spinal and neural foraminal narrowing. C6-C7: No disc herniation, spinal canal stenosis or neuroforaminal narrowing. C7-T1: No disc herniation, spinal canal stenosis or neural foraminal narrowing. OTHER FINDINGS: None. IMPRESSION: No evidence of enhancing lesion or abnormal signal at the cervical cord to suggest demyelination disease. Multilevel small osteophyte disc bulging complex more prominent at C4-C5 and C5-C6 associated with mild spinal narrowing and [id number] degenerative disc changes.
[2016-06-12 19:13] LABS: Interpretation Negative (Negative)
[2016-06-12 19:13] LABS: Interpretation Negative (Negative)
[2016-06-13] MEDS: Arformoterol 15 mcg/2 ml Inh Sol IH SCH (08:00)
[2016-06-13] MEDS: Budesonide 0.5 mg/2 ml Inhal Susp UD IH SCH (08:01)
--- NOTE | 2016-06-13 08:08 | PN ---
DATE: 06/12/2016 SUBJECTIVE: The patient was seen and examined on the bedside. Looks comfortable. Again talking about her vision from the left eye, still that she cannot see anything. According to her, she talked with her old division operations specialist and is trying to get old record from her division operations specialist. Length of time discussion done. All questions answered. Otherwise, she is feeling better. No nausea, vomiting, diarrhea. No hematuria, hematochezia. No swelling of the leg. No fever, no chills. PHYSICAL EXAMINATION: VITAL SIGNS: Temperature 97.9, pulse 98, blood pressure 110/80, respiratory rate 18. HEENT: Head normocephalic, atraumatic. Eyes PERRLA. Extraocular muscles intact. Conjunctivae pink. Eyelids unremarkable. Nose patent. Mucous membranes moist. NECK: Supple. No carotid bruits. No JVD or thyromegaly. CHEST: Bilaterally symmetrical. HEART: S1, S2 positive. LUNGS: Clear to auscultation. ABDOMEN: Soft. Bowel sounds present. No organomegaly. EXTREMITIES: No edema, no cyanosis. NEUROLOGIC: The patient is awake, alert, moving all 4 extremities. No focal deficit. MEDICATIONS: Ambien, Bactrim, Brovana, Claritin, Effexor, Flonase, Klonopin, Solu-Medrol, Neurontin, Pepcid, Plavix, Pulmicort, Remeron, Singulair, Synthroid , Tylenol. LABORATORY DATA: White blood cells 4.8, hemoglobin 12.9, hematocrit 38.4, platelets 351, glucose is 97. Vitamin D less than 12.8. Vitamin B family is pending. ASSESSMENT AND PLAN: The patient is a 60-year-old lady with vitamin D deficiency, urinary tract infection. Most of the rheumatic workup is negative and other is pending. Went for MRI of the cervical spine, no evidence of enhancing lesion or abnormal signal of the cervical cord to suggest demyelinating disease. Multilevel small osteophyte disk, bulging complex, more prominent at C4-C5, C5-C6 associated with mild spinal narrowing and mild-to- moderate degenerative disk changes. Seen by Dr. Asher Maldonado, neurologist. Hypertension is getting better. Left eye blindness secondary to questionable vitreous hemorrhage in the past of which she has told. History of hypothyroidism, anxiety, depression, recent loss of her , history of dyslipidemia. Seen by the division operations specialist in [place] and was suggested conservative management. Has left temporal headache with loss of vision of the left eye, intermittent paresthesia of the left arm and leg. ESR is normal. Numbness of bilateral hands and feet over this past month. In [facility], Dr. Boykin saw the patient. Had left optic nerve edema and diagnosis non ischemic neuropathy of the left optic nerve, which neurologist agrees. The patient was started on Solu-Medrol for 3 doses. She already had 2 doses. MRI cervical spine reviewed by me. Continue gabapentin, Plavix. We will start vitamin D. Length of time discussion done with patient, all questions answered. Appreciating neurologist input. We will follow up. Ebonie Camp MD cc: [id number] TT: 06/12/2016 22:19:36 Confirmation # [id number] Dictation # [id number] sn MTDD
[2016-06-13 08:32] VITALS: BP 124/76; PULSE 80; RESP 19; TEMP 97.9; O2SAT 95
[2016-06-13] MEDS: Tmp-Smz 800 mg-160 mg DS Tab PO SCH (09:47)
[2016-06-13] MEDS: Venlafaxine 75 mg ER Cap PO SCH (09:48)
[2016-06-13] MEDS: Fluticasone Nasal 50 mcg/Spray NS SCH (09:49)
[2016-06-13] MEDS: methylPREDNISolone 1 GM in Sodium Chloride 0.9% 250 ML IVPB SCH (09:50)
[2016-06-13] MEDS: Levothyroxine 112 MCG TAB PO SCH (09:50)
[2016-06-13] MEDS ORDERED: Budesonide 0.5 mg/2 ml Inhal Susp UD IH SCH (11:02)
[2016-06-13] MEDS ORDERED: Tmp-Smz 800 mg-160 mg DS Tab PO SCH (11:05)
[2016-06-13] MEDS ORDERED: cefTRIAXone 1 gm 100 ML IVPB SCH (11:15)
--- NOTE | 2016-06-13 16:44 | CP.PCM.CON ---
History of Present Illness - History of Present Illness History of Present Illness: 60 year old female with PMH of CVA, HTN, obesity with BMI 31, S/P gastric bypass surgery, hypothyroidism, history of anxiety and depression was admitted initially because of sudden loss of vision in the left eye. She had previously been seeing an Ophtho which diagnosed her with vitreal hemorrhages. She was seen by Ophtho here in the hospital and is being seen by Neurology. 2 days ago the patient complained of some dysuria and right flank pain and urinalysis showed some pyuria. Urine cultures showed 10-50K of gram positive cocci. Infectious Diseases consult is requested to further evaluate and manage. Currently she denies fever or chills, has less dysuria, no nausea, no vomiting, no headache or dizziness, no chest pain, no SOB, no cough or colds, no abdominal pain, no diarrhea. Review of Systems - Review of Systems All systems: reviewed and no additional remarkable complaints except (as per HPI ) Past Patient History - Infectious Disease Hx of Infectious Diseases: None - Past Social History Smoking Status: Never Smoked Alcohol: None Drugs: Denies Home Situation {Lives}: With Family - CARDIAC Hx Hypertension: Yes - PULMONARY Hx Respiratory Disorders: Yes (SMOKED CIGARETTES PPD .QUIT 25 YRS AGO) - NEUROLOGICAL Hx Neurological Disorder: Yes HX Cerebrovascular Accident: Yes (06-10-16 LEFT SIDED NUMBNESS,L HEMIANOPSIA) Hx Transient Ischemic Attacks (TIA): Yes - HEENT Hx HEENT Problems: Yes Hx Blind: Yes (LEFT HEMIANOPSIA 06-10-16) Other/Comment: RETINAL SPECIALIST - HEMORRHAGE TO BACK OF EYE. - RENAL Hx Chronic Kidney Disease: No - ENDOCRINE/METABOLIC Hx Hypothyroidism: Yes - HEMATOLOGICAL/ONCOLOGICAL Hx Blood Transfusions: Yes Hx Blood Transfusion Reaction: No - INTEGUMENTARY Hx Dermatological Problems: Yes Other/Comment: VITILIGO - MUSCULOSKELETAL/RHEUMATOLOGICAL Hx Falls: No - GASTROINTESTINAL Hx Gastrointestinal Disorders: No - GENITOURINARY/GYNECOLOGICAL Hx Genitourinary Disorders: No - PSYCHIATRIC Hx Anxiety: Yes Hx Depression: Yes Hx Substance Use: No - SURGICAL HISTORY Hx Gastric Bypass Surgery: Yes (20yrs ago) - ANESTHESIA Hx Anesthesia: Yes Hx Anesthesia Reactions: No Hx Malignant Hyperthermia: No Meds Home Medications: Home Medication List Medication Instructions Recorded Confirmed Type Gabapentin [Neurontin] 300 mg PO HS #30 cap 06/13/16 Rx Mirtazapine [Remeron Soltab] 45 mg PO HS #30 odt 06/13/16 Rx Venlafaxine [Effexor XR] 150 mg PO DAILY #30 cer 06/13/16 Rx Allergies/Adverse Reactions: Allergies Allergy/AdvReac Type Severity Reaction Status Date / Time aspirin Allergy RASH Verified 06/10/16 11:51 codeine Allergy RASH Verified 06/10/16 11:51 - Medications Medications: Current Medications Acetaminophen (Tylenol 325mg Tab) 650 mg PO Q6H PRN PRN Reason: Fever >100.4 F Arformoterol Tartrate (Brovana) 15 mcg IH [id number] [facility] Last Admin: 06/12/16 19:55 Dose: 15 mcg Budesonide (Pulmicort Respules) 1 mg IH [id number] [facility] Last Admin: 06/12/16 19:55 Dose: 1 mg Clonazepam (Klonopin) 0.5 mg PO BID [facility] PRN Reason: Protocol Last Admin: 06/12/16 17:57 Dose: Not Given Clopidogrel Bisulfate (Plavix) 75 mg PO DAILY [facility] Last Admin: 06/12/16 09:29 Dose: 75 mg Famotidine (Pepcid) 40 mg PO HS [facility] Last Admin: 06/12/16 21:29 Dose: 40 mg Fluticasone Propionate (Flonase) 1 actuation NS DAILY [facility] Last Admin: 06/12/16 12:40 Dose: Not Given Gabapentin (Neurontin) 300 mg PO HS [facility] Last Admin: 06/12/16 21:28 Dose: 300 mg Methylprednisolone 1 gm/ (Sodium Chloride) 250 mls @ 500 mls/hr IVPB DAILY [facility] Stop: 06/13/16 10:29 Last Admin: 06/12/16 09:37 Dose: 500 mls/hr Levothyroxine Sodium (Synthroid) 112 mcg PO ACB [facility] Last Admin: 06/12/16 07:46 Dose: 112 mcg Loratadine (Claritin) 10 mg PO DAILY [facility] Last Admin: 06/12/16 09:32 Dose: 10 mg Mirtazapine (Remeron) 45 mg PO HS [facility] Last Admin: 06/12/16 21:29 Dose: 45 mg Montelukast Sodium (Singulair) 10 mg PO HS [facility] Last Admin: 06/12/16 21:28 Dose: 10 mg Trimethoprim/Sulfamethoxazole (Bactrim Ds Tab) 1 tab PO BID HALLE PRN Reason: Protocol Last Admin: 06/12/16 17:57 Dose: 1 tab Venlafaxine HCl (Effexor Xr) 150 mg PO DAILY [facility] Last Admin: 06/12/16 09:29 Dose: 150 mg Zolpidem Tartrate (Ambien) 10 mg PO HS PRN; Protocol PRN Reason: Insomnia Last Admin: 06/12/16 22:52 Dose: 10 mg Physical Exam - Constitutional Appears: Non-toxic, No Acute Distress - Head Exam Head Exam: NORMAL INSPECTION - Neck Exam Neck exam: Negative for: Lymphadenopathy, Meningismus - Respiratory Exam Respiratory Exam: Decreased Breath Sounds - Cardiovascular Exam Cardiovascular Exam: +S1, +S2 - GI/Abdominal Exam GI & Abdominal Exam: Soft. absent: Tenderness Results - Vital Signs Recent Vital Signs: Last Vital Signs Temp 97.4 F L 06/12/16 16:00 Pulse 84 06/12/16 16:00 Resp 20 06/12/16 16:00 BP 157/84 H 06/12/16 16:00 Pulse Ox 96 06/12/16 16:00 - Labs Result Diagrams: 06/10/16 10:37 06/10/16 10:37 Labs: Laboratory Results - last 24 hr 06/12/16 06:50 ESR 10 Assessment & Plan - Assessment and Plan (Free Text) Plan: Assessment Consider UTI with coagulase negative Staph (verbalized by the microlab) Left eye loss of vision probably from optic nerve edema CVA HTN obesity with BMI 31 S/P gastric bypass surgery hypothyroidism history of anxiety and depression Plan Gave a dose of IV Rocephin and patient can complete a 10 day course of PO Bactrim DS 1 tab BID, with outpatient follow up with her PMD Discussed with Dr. Camp
--- NOTE | 2016-06-16 09:00 | CP.PCM.PCO ---
Physician Communication Note - Physician Communication Note Physician Communication Note: this science writer was on vacation, covering MD was not contacted for consult
--- NOTE | 2016-07-03 12:01 | DS ---
CHIEF COMPLAINTS: Weakness, neurological deficit. HISTORY OF PRESENT ILLNESS: The patient is a 60-year-old lady with past medical history of stroke, hypertension. Came to the Emergency Room after waking up in the morning with left eye blindness described as complete black vision from left eye, maybe a few light green can see, but all black. The patient went to the bed at 2:30 a.m. At that time, her vision was okay. The patient states that her vision was fine in both eyes, although a day before that , she went to see the specialist at [facility] for left eye examination where she was told that she had hemorrhages in the back of left eye. The patient has also been experiencing left-sided numbness since yesterday. She got intermittent left-sided numbness. No fever, no chills. We did a CAT scan of the head, MRA of the brain, bilateral carotid Doppler of the neck, cervical spine MRI. Seen by Dr. Niecy Mercado for depression and infectious disease, Dr. Stephan Howard. Dr. Asher Maldonado was the neurologist on the case. The patient was seen by Dr. John Boykin, kiln drawer. The patient was given steroids. Length of time workup done. Length of time discussion done with Dr. John Boykin and Dr. Maldonado about her vision. Finally, patient was discharged on 18 evening she has appointment with her own eye doctor who did her examination before hospitalization and she wanted to follow up there, so we discharged her there, follow up there. PAST MEDICAL HISTORY: Hypertension, hypothyroidism, anemia, blood transfusion, anxiety, depression, gastric bypass surgery 20 years ago. FAMILY HISTORY: Father and mother noncontributory. HABITS: Never smoked, no drugs, no ethanol. ALLERGIES: THE PATIENT IS ALLERGIC WITH ASPIRIN AND CODEINE. REVIEW OF SYSTEMS: The patient was seen and examined on the bedside on 2016, looks comfortable. Still cannot see from her left eye. No nausea, vomiting, diarrhea. No hematuria, no hematochezia. No shortness of breath, no coughing, no dizziness. PHYSICAL EXAMINATION: VITAL SIGNS: Temperature 97.9, pulse 80, blood pressure 124/76, respiratory rate 19. HEENT: Normocephalic, atraumatic. Eyes PERRLA. Left eye cannot see. Right eye vision is okay as per patient. Nose patent. Mucous membranes moist. NECK: Supple. No carotid bruit, no JVD, no thyromegaly. LUNGS: Clear to auscultation. HEART: S1, S2 positive. ABDOMEN: Soft. Bowel sounds positive. No organomegaly. EXTREMITIES: No edema, no cyanosis. NEUROLOGIC: The patient is awake, alert, moving all 4 extremities. No focal deficit. LABORATORIES: White blood cells 4.8, hemoglobin 12.9, hematocrit 38.4, platelets 351. Vitamin D less than 12.8. B1 94. B12 444. Methylmalonic acid 225. Sodium 135, potassium 4.6, BUN 7, creatinine 0.7, AST 22, ALT 32. ASSESSMENT AND PLAN: The patient is a 60-year-old lady with history of cerebrovascular accident, hypertension, history of obesity, status post gastric bypass 20 years ago, hypothyroidism, history of anxiety, depression, has a urinary tract infection with coagulase-negative Staph by the micro lab, left eye loss of vision probably from optic nerve edema. The patient got dose of IV Rocephin. Can complete 10-day course of Bactrim-DS b.i.d. as outpatient. Discussion done with Dr. Stephan Howard that patient is okay for discharge with Bactrim. We called psychiatrist consult, Dr. Niecy Mercado. Actually, she was on vacation. Covering MD was not contacted by the consult as per system failure. The patient was seen by Dr. Asher Maldonado. History of hypertension, dyslipidemia, questionable vitreous hemorrhage in the past. Seen by kiln drawer at [place], who is managing with conservative management of the left eye vision loss. Recently had loss of a few months ago and is very anxious and depressed, even had 1 admission in the psych department. Should be on antidepressant, but she was not taking. Has left temporal headache with loss of vision in the left eye, intermittent paresthesias of left arm and leg. ESR is normal. She has intermittent paraesthesia of the bilateral hands and face over the past month. Appetite is depressed. As per patient, sleep is disturbed. In the hospital, kiln drawer evaluated the patient, showed that she has left optic nerve edema and had a diagnosis of non- arterial ischemic neuropathy of the left optic nerve. The patient was started on 3 doses of Solu-Medrol by the neurologist and patient got that. MRI of the cervical spine was done. Continue gabapentin, Plavix. Vitamin D deficiency. The patient was given 5000 units of vitamin D once a week. Rheumatic profile, rheumatoid factor is normal as was B12 and ESR is normal. Cervical spine MRI showed multilevel small osteophytes, disk bulging, complex, more prominent at C4 -C5, C5-C6 associated with mild spinal narrowing and mild to moderate degenerative disk changes. The patient discharged home as per patient request. Prescription of medicines given. Follow up with kiln drawer, retinal specialist and neurologist, primary care physician and psychiatrist. Urged to take medications regularly and she will follow up with the primary care physician also. Ebonie aCmp MD cc: [id number] TT: 07/03/2016 12:00:28 en MTDD
== END 2016-06-13 15:55 | disposition home or self-care (01) | DRG 45 ==
LOC: ED 09:49 → ERH 11:21 → 3RSO 12:30 → OBSVTOIN 06-11 21:45
PROVIDERS: ADMIT Internal Medicine; ATTEND Internal Medicine
PROC: 3E0F7GC Introduction of Other Therapeutic Substance into Respiratory Tract, Via Natural or Artificial Opening (ICD-10-PCS; principal; 2016-06-10)
DX: H46.8 Other optic neuritis (principal); H47.10 Unspecified papilledema; H54.42 Blindness, left eye, normal vision right eye; I65.23 Occlusion and stenosis of bilateral carotid arteries; N39.0 Urinary tract infection, site not specified; I10 Essential (primary) hypertension; E78.5 Hyperlipidemia, unspecified; E03.9 Hypothyroidism, unspecified; F32.9 Major depressive disorder, single episode, unspecified; F41.9 Anxiety disorder, unspecified; E66.9 Obesity, unspecified; F51.02 Adjustment insomnia; E55.9 Vitamin D deficiency, unspecified; Z68.31 Body mass index [BMI] 31.0-31.9, adult; Z86.73 Personal history of transient ischemic attack (TIA), and cerebral infarction without residual deficits; Z98.84 Bariatric surgery status; Z88.6 Allergy status to analgesic agent